=== PATIENT | female | born 1950 | race Two or more races ===

== ENCOUNTER 2018-01-22 10:43 | Outpatient (CLI) | payer OTHER ==
[~2018-01-22] VITALS: Ht 152.4 cm; Wt 52.6 kg
[~2018-01-22 10:43] MED LIST: AFRIN SPRAY15 ML NS; AYR SALINE NA14.1 GM NASAL; EAR WAX REMOVER15 ML OT
== END 2018-01-22 11:00 | disposition home or self-care (01) ==
LOC: OFIC 805 10:43
DX: J31.0 Chronic rhinitis (principal); J34.2 Deviated nasal septum; R04.0 Epistaxis

== ENCOUNTER 2018-03-07 10:22 | Outpatient (CLI) | payer OTHER | END 2018-03-07 10:32 | disposition home or self-care (01) | LOC: SONOGRAMA 10:22 | DX: N64.89 Other specified disorders of breast (principal) ==

== ENCOUNTER 2018-09-08 10:52 | Outpatient (CLI) | payer OTHER | END 2018-09-08 14:43 | disposition home or self-care (01) | LOC: MAMO-SONO 10:52 | DX: Z12.31 Encounter for screening mammogram for malignant neoplasm of breast (principal); N64.89 Other specified disorders of breast ==